=== PATIENT | female | born 1940 | race African-American/Black ===

== ENCOUNTER 2020-10-28 17:30 | Inpatient (IN) | payer MEDICARE ==
[2020-10-28] MEDS ORDERED: HumaLOG 300 UNITS/3 ML VIAL SC PRN (20:30)
[2020-10-28] MEDS ORDERED: Dextrose 50% Abboject 50 ML SYRINGE IVP PRN (20:30)
[2020-10-28] MEDS ORDERED: Dextrose 5% in Water 1,000 ML IV PRN (20:30)
[2020-10-28] MEDS ORDERED: Acetaminophen 500 MG TAB PO PRN (20:34)
[2020-10-28] MEDS: Atorvastatin Calcium 40 MG TAB PO SCH ×2 (20:55→21:44)
[2020-10-29] MEDS: HumaLOG 300 UNITS/3 ML VIAL SC PRN ×2 (06:11→12:26)
[2020-10-29] MEDS: Calcium Carbonate 600 MG + Vit D TAB PO SCH (08:05)
[2020-10-29] MEDS: Cholecalciferol 1,000 UNITS (25 MCG) TAB PO SCH (08:05)
[2020-10-29] MEDS: Losartan Potassium 50 MG TAB PO SCH (08:06)
[2020-10-29] MEDS: Folic Acid 1 MG TAB PO SCH (08:06)
[2020-10-29] MEDS: Aspirin 81 mg Enteric Coated Tablet PO SCH (08:06)
[2020-10-29] MEDS: Amlodipine 5 MG TAB PO SCH (08:06)
[2020-10-29] MEDS: metFORMIN 500 MG TAB PO SCH ×2 (08:07→17:19)
[2020-10-29] MEDS ORDERED: Ondansetron ODT 4 MG TAB PO PRN (09:39)
[2020-10-29] MEDS ORDERED: Acetaminophen 325 MG TAB PO PRN (09:39)
--- NOTE | 2020-10-29 10:06 | HP ---
HISTORY OF PRESENT ILLNESS: The patient is an 80-year-old pleasantly demented female, who [place] [facility] [facility] for COVID pneumonia. The patient was originally admitted for COVID positive state with pneumonia, first diagnosed on October 24. The patient also had metabolic acidosis secondary to dehydration and diarrhea, which has resolved. She recovered well from her COVID state, but remained in precautions and was still requiring PT/OT Services. The [place] [facility] and treatment. REVIEW OF SYSTEMS: Unable to obtain due to dementia. HPI and history were obtained through document review from previous hospital stays. PAST MEDICAL HISTORY: Dementia, hyperlipidemia, hypertension, and blindness. PAST SURGICAL HISTORY: Eye surgery. FAMILY HISTORY: Noncontributory. SOCIAL HISTORY: Lives at home with her niece and nephew. No history of tobacco abuse. She did chew tobacco, but quit five years ago. No history of alcohol abuse or drug use. HOME MEDICATIONS: 1. Vitamin D3. 2. Calcium. 3. Atorvastatin 40 mg at bedtime. 4. Metformin 1000 p.o. b.i.d. with meals. 5. Losartan 100 mg p.o. daily. 6. Aspirin 81 mg p.o. daily. 7. Norvasc 10 mg p.o. daily. 8. Quetiapine 150 p.o. at bedtime. OBJECTIVE: VITAL SIGNS: Temperature 98.4, pulse 84, respirations 19, O2 saturations 95% on room air, and blood pressure 117/59. GENERAL: Well-appearing, pleasantly demented 80-year-old female, lying in bed, in no acute distress. HEENT: EOMI. PERRLA. Normocephalic and atraumatic. Legally blind with cloudy corneas. NECK: No thyromegaly. No JVD. HEART: Regular rate and rhythm. No murmurs, gallops, or rubs. LUNGS: Clear to auscultation bilaterally. No wheezes or rhonchi. ABDOMEN: Soft and nontender to palpation. Bowel sounds positive in all four quadrants. NEUROLOGIC: Alert and oriented to self only. No focal deficit. LABORATORY DATA: Pending. ASSESSMENT: 1. Deconditioning secondary to COVID pneumonia. 2. Hypertension. 3. Hyperlipidemia. 4. Dementia. PLAN: 1. Continue COVID precautions for now. She will need to be under precautions until November 03. The patient is doing well and asymptomatic at this time. We are using full PPD precautions for her room as well. 2. Continue home antihypertensives. 3. PT/OT consult. 4. Continue diet. She will need help with feeding. 5. Dementia precautions. 6. Fall precautions. 7. Follow up with lab work. 8. DVT prophylaxis with SCDs due to fall risk. Job ID: [id number]
[2020-10-29] MEDS: Atorvastatin Calcium 40 MG TAB PO SCH (20:53)
[2020-10-30 05:19] LABS: ALT (SGPT) 12 U/L (8-55); AST (SGOT) 24 U/L (5-34); Albumin 2.8 g/dL (3.4-4.8); Alkaline Phosphatase 70 U/L (40-110); Anion Gap 15 mmol/L (10-20); BUN (Urea Nitrogen) 23 mg/dL (9.8-20.1); Bilirubin, Total 0.3 mg/dL (0.2-1.2); Calc. Creatinine Clearance 32 mL/min (70-130); Calcium 8.5 mg/dL (7.8-10.44); Carbon Dioxide 26 mmol/L (23-31); Chloride 99 mmol/L (98-107); Globulin 3.4 g/dL (2.4-3.5); Glucose 224 mg/dL (83-110); Potassium 3.9 mmol/L (3.5-5.1); Protein, Total 6.2 g/dL (6.0-8.3); Sodium 136 mmol/L (136-145)
[2020-10-30 05:24] LABS: Red Blood Cell (RBC) Count 3.79 mill/uL (4.20-5.40); White Blood Cell (WBC) Count 3.2 thou/uL (4.8-10.8)
[2020-10-30 05:25] LABS: #Eosinphils 0.1 thou/uL (0.0-0.7); #Lymphocytes 0.8 thou/uL (1.20-3.40); #Monocytes 0.4 thou/uL (0.11-0.59); %Basophils 0.5 % (0.0-1.0); %Eosinophils 1.8 % (0.0-10.0); %Lymphocytes 24.2 % (21.0-51.0); %Monocytes 10.9 % (0.0-10.0); %Neutrophils 62.5 % (42.0-75.0); Hemoglobin 10.7 g/dL (12.0-16.0); Manual Diff?? NO; Mean Corpuscular HGB CONC 31.2 g/dL (32.0-36.0); Mean Corpuscular Hemoglobin 28.3 pg (27.0-31.0); Mean Corpuscular Volume 90.6 fL (78.0-98.0); Mean Platelet Volume 8.4 fL (7.4-10.4); Platelet Count 302 thou/uL (130-400); RBC Distribution Width 12.7 % (11.5-14.5)
[2020-10-30 05:26] LABS: Anisocytosis SLIGHT = 6-15 cells (100X) (0-5/hpf); Hypochromia MODERATE=16-30 cells (100X) (0-5/hpf); Platelet Morphology Comment Appears Adequate
[2020-10-30] MEDS: HumaLOG 300 UNITS/3 ML VIAL SC PRN ×2 (05:51→11:56)
[2020-10-30] MEDS: Calcium Carbonate 600 MG + Vit D TAB PO SCH (08:04)
[2020-10-30] MEDS: Aspirin 81 mg Enteric Coated Tablet PO SCH (08:05)
[2020-10-30] MEDS: metFORMIN 500 MG TAB PO SCH ×2 (08:11→17:15)
[2020-10-30] MEDS: Cholecalciferol 1,000 UNITS (25 MCG) TAB PO SCH (08:11)
[2020-10-30] MEDS: Amlodipine 5 MG TAB PO SCH (08:11)
[2020-10-30] MEDS: Folic Acid 1 MG TAB PO SCH (08:12)
[2020-10-30] MEDS: Losartan Potassium 50 MG TAB PO SCH (08:12)
[2020-10-30] MEDS: Atorvastatin Calcium 40 MG TAB PO SCH (21:20)
[2020-10-31] MEDS: HumaLOG 300 UNITS/3 ML VIAL SC PRN ×3 (06:01→17:40)
[2020-10-31] MEDS: Calcium Carbonate 600 MG + Vit D TAB PO SCH (09:33)
[2020-10-31] MEDS: Amlodipine 5 MG TAB PO SCH (09:33)
[2020-10-31] MEDS: Cholecalciferol 1,000 UNITS (25 MCG) TAB PO SCH (09:33)
[2020-10-31] MEDS: metFORMIN 500 MG TAB PO SCH ×2 (09:35→17:39)
[2020-10-31] MEDS: Aspirin 81 mg Enteric Coated Tablet PO SCH (09:35)
[2020-10-31] MEDS: Folic Acid 1 MG TAB PO SCH (09:36)
[2020-10-31] MEDS: Losartan Potassium 50 MG TAB PO SCH (09:39)
--- NOTE | 2020-10-31 12:03 | PRG ---
DATE OF SERVICE: 10/31/2020 SUBJECTIVE: Ms. Kim is doing the same. Denies any complaints. Resting comfortably. She is still on respiratory droplet precautions due to recent COVID. This is to be end on November 03. OBJECTIVE: VITAL SIGNS: She is afebrile. Heart rate 91, respirations 18, oxygen saturation 96% on room air, blood pressure was 119/78 after her blood pressure medicines and 152/70 before her blood pressure medications. CARDIOVASCULAR SYSTEM: S1 and S2 plus. RESPIRATORY SYSTEM: Normal vesicular breath sounds. ABDOMEN: Soft, nontender. Bowel sounds heard in all quadrants. EXTREMITIES: Without cyanosis, clubbing. CENTRAL NERVOUS SYSTEM: Generalized weakness, otherwise nonfocal. IMPRESSION: 1. Recent COVID-19 infection. 2. Diabetes mellitus type 2. 3. Hypertension. 4. Dyslipidemia. 5. Dementia. 6. Deconditioning. PLAN: 1. Continue current medications. 2. 1800 calorie heart healthy ADA diet. 3. Accu-Cheks with sliding scale coverage. 4. Monitor blood pressure and adjust medications as needed. 5. Respiratory droplet precautions and monitor respiratory status. 6. DVT prophylaxis. 7. Decubitus precautions. 8. Stress ulcer prophylaxis. 9. Therapy. 10. Routine laboratory values. 11. Dr. Kofi amaya [facility]. Job ID: [id number]
[2020-10-31] MEDS ORDERED: Polyethylene Glycol 3350 17 GM Packet PO PRN (12:36)
[2020-10-31] MEDS ORDERED: Milk Of Magnesia 30 ML UDCUP PO PRN (12:36)
[2020-10-31] MEDS ORDERED: Fluconazole 100 MG TAB PO SCH (19:00)
[2020-10-31] MEDS: Atorvastatin Calcium 40 MG TAB PO SCH (20:42)
[2020-11-01] MEDS: HumaLOG 300 UNITS/3 ML VIAL SC PRN ×3 (04:51→17:35)
[2020-11-01] MEDS: Polyethylene Glycol 3350 17 GM Packet PO SCH (08:48)
[2020-11-01] MEDS: Cholecalciferol 1,000 UNITS (25 MCG) TAB PO SCH (08:49)
[2020-11-01] MEDS: Folic Acid 1 MG TAB PO SCH (08:49)
[2020-11-01] MEDS: Calcium Carbonate 600 MG + Vit D TAB PO SCH (08:49)
[2020-11-01] MEDS: Losartan Potassium 50 MG TAB PO SCH (08:49)
[2020-11-01] MEDS: Aspirin 81 mg Enteric Coated Tablet PO SCH (08:49)
[2020-11-01] MEDS: metFORMIN 500 MG TAB PO SCH ×2 (08:49→17:35)
[2020-11-01] MEDS: Amlodipine 5 MG TAB PO SCH (08:51)
[2020-11-01] MEDS ORDERED: Ondansetron ODT 4 MG TAB SL PRN (10:00)
[2020-11-01] MEDS: Atorvastatin Calcium 40 MG TAB PO SCH (20:50)
[2020-11-02] MEDS: HumaLOG 300 UNITS/3 ML VIAL SC PRN ×2 (06:02→11:52)
[2020-11-02] MEDS: Cholecalciferol 1,000 UNITS (25 MCG) TAB PO SCH (08:03)
[2020-11-02] MEDS: Losartan Potassium 50 MG TAB PO SCH (08:03)
[2020-11-02] MEDS: Polyethylene Glycol 3350 17 GM Packet PO SCH (08:03)
[2020-11-02] MEDS: metFORMIN 500 MG TAB PO SCH ×2 (08:03→17:53)
[2020-11-02] MEDS: Calcium Carbonate 600 MG + Vit D TAB PO SCH (08:03)
[2020-11-02] MEDS: Aspirin 81 mg Enteric Coated Tablet PO SCH (08:04)
[2020-11-02] MEDS: Folic Acid 1 MG TAB PO SCH (08:04)
[2020-11-02] MEDS: Amlodipine 5 MG TAB PO SCH (08:04)
[2020-11-02] MEDS: HumaLOG 300 UNITS/3 ML VIAL SC SCH ×2 (17:53→22:05)
[2020-11-02] MEDS: Atorvastatin Calcium 40 MG TAB PO SCH (22:04)
[2020-11-03] MEDS: HumaLOG 300 UNITS/3 ML VIAL SC SCH ×4 (07:45→21:11)
[2020-11-03] MEDS: Polyethylene Glycol 3350 17 GM Packet PO SCH (08:32)
[2020-11-03] MEDS: Calcium Carbonate 600 MG + Vit D TAB PO SCH (08:33)
[2020-11-03] MEDS: Amlodipine 5 MG TAB PO SCH (08:33)
[2020-11-03] MEDS: Cholecalciferol 1,000 UNITS (25 MCG) TAB PO SCH (08:33)
[2020-11-03] MEDS: Folic Acid 1 MG TAB PO SCH (08:33)
[2020-11-03] MEDS: metFORMIN 500 MG TAB PO SCH ×2 (08:33→17:29)
[2020-11-03] MEDS: Losartan Potassium 50 MG TAB PO SCH (08:34)
[2020-11-03] MEDS: Aspirin 81 mg Enteric Coated Tablet PO SCH (08:41)
[2020-11-03] MEDS ORDERED: Insulin Glargine 5 UNITS in Pre-Filled Syringe 1 EACH SC SCH (11:16)
[2020-11-03] MEDS: Nystatin 500,000 UNITS/5 ML UDCUP SSW SCH ×3 (13:02→20:54)
--- NOTE | 2020-11-03 16:15 | PRG ---
DATE OF SERVICE: 11/01/2020 SUBJECTIVE: This is a pleasant 80-year-old female, here for continued PT and OT services. She is doing well today. No complaints. Resting in bed comfortably. She is still in droplet precautions because she was diagnosed with COVID at her previous stay. OBJECTIVE: VITAL SIGNS: Temperature 97.0, pulse 82, respirations 16, O2 saturations 96 on room air, and blood pressure 113/56. GENERAL: Well-appearing, pleasant female, lying in bed, in no acute distress. CARDIOVASCULAR: Regular rate and rhythm. No murmurs, gallops, or rubs. RESPIRATORY: Clear to auscultation bilaterally. No wheezes or rhonchi. ABDOMEN: Soft, nontender to palpation. Bowel sounds positive in all 4 quadrants. EXTREMITIES: No cyanosis or clubbing. LABORATORY DATA: Blood glucose 153 to 338. IMPRESSION: 1. Recent COVID infection. 2. Diabetes mellitus, type 2. 3. Hypertension. 4. Dyslipidemia. 5. Dementia. 6. Deconditioning. PLAN: 1. Continue current medications; however, we will need to review her insulin regimen due to high CBGs. 2. ADA diet. 3. Accu-Cheks with sliding scale coverage. 4. Monitor blood pressure. 5. Continue respiratory and droplet precautions per COVID protocol. 6. DVT prophylaxis. 7. Decubitus precautions. 8. Stress ulcer prophylaxis. 9. PT/OT services. Job ID: [id number] MTDD
--- NOTE | 2020-11-03 16:26 | PRG ---
DATE OF SERVICE: 11/02/2020 SUBJECTIVE: The patient is doing well. However, her blood sugars remain elevated. We will adjust with scheduled insulin rather than sliding scale as this is not providing adequate coverage. Overall doing very well and participating well in therapy. She remains on COVID precautions. OBJECTIVE: VITAL SIGNS: Temperature 97.1, pulse 84, respirations 18 to 20, O2 saturations 99% on room air, blood pressure 113/52. LABORATORY DATA: Blood glucose ranging from 209 to 292. ASSESSMENT: 1. Status post COVID infection, recovering well. 2. Diabetes type 2. 3. Hypertension. 4. Hyperlipidemia. 5. Dementia. 6. Weakness and deconditioning. PLAN: 1. Start insulin lispro 5 units q.a.c. and discontinue sliding scale coverage. Continue q.a.c. blood glucose. We will consider long-acting insulin based on the patient's new blood sugars. 2. Continue PT and OT services. 3. DVT and stress ulcer prophylaxis. 4. Continue current BP medications. BP well controlled. 5. Discharge planning: conservation worker has discussed discharge planning with the patient's family and they would like for her to go to [facility]. We are working on placement for this. However, she will need to be out of COVID precautions before she can be transferred to a nursing facility. Her precautions will be over at midnight on 11/02, essentially 1159 hours on November 02. Continue to monitor the patient with blood pressure and vitals. Job ID: [id number]
--- NOTE | 2020-11-03 16:27 | PRG ---
DATE OF SERVICE: 11/03/2020 SUBJECTIVE: The patient is doing well today. She is out of her COVID precautions. She is doing well and she is actually up and walking around with Physical Therapy today. The patient's blood sugars have been improving; however, they ranged from 66 to 79. Therefore, we will initiate long-acting insulin. She will also need to have a snack before bed as her blood sugar was low overnight. We will continue to monitor this. OBJECTIVE: VITAL SIGNS: Today; temperature 97.6, pulse 81 to 84, respirations 18, O2 sats 98% on room air, and blood pressure ranged 96/51 to 119/57. The patient does appear to be orthostatic with a pulse of 96 to 105. We will need to encourage fluids for this. GENERAL: A well-appearing 80-year-old female, lying in bed, in no acute distress. Later in the day, I did see her walking around as well and she was doing very well, walking with PT. LUNGS: Respirations clear to auscultation bilaterally. No wheezes or rhonchi. HEART: Regular rate and rhythm. No murmurs, gallops, rubs. GI: Soft, nontender to palpation. Bowel sounds positive in all 4 quadrants. EXTREMITIES: No cyanosis, no clubbing. ASSESSMENT: 1. Resolving COVID infection. The patient is now out of precautions due to being asymptomatic. 2. Hypertension. 3. Hyperlipidemia. 4. Diabetes, type 2. 5. Deconditioning. 6. Weakness. PLAN: 1. Start glargine 5 units in the morning. We will continue to monitor her blood sugar. She will need a snack before bedtime. We will continue 5 units of lispro as well and this is more in line with her home regimen per family. 2. Continue antihypertensives. Monitor blood pressure. 3. PT/OT Services. 4. DVT and stress ulcer prophylaxis. 5. Decubitus precautions. 6. Fall precautions. 7. Aspiration precautions. 8. Continue to monitor the patient. Overall, she seems to be doing very well. 9. Discharge planning: The patient's family would like for her to go to a nursing facility now that the patient is out of COVID precautions, we can start looking for placement for her. We will follow up with Case Management for this. Job ID: [id number]
[2020-11-03] MEDS: Atorvastatin Calcium 40 MG TAB PO SCH (20:50)
[2020-11-04] MEDS: HumaLOG 300 UNITS/3 ML VIAL SC SCH ×4 (08:11→20:21)
[2020-11-04] MEDS: Aspirin 81 mg Enteric Coated Tablet PO SCH (08:11)
[2020-11-04] MEDS: Cholecalciferol 1,000 UNITS (25 MCG) TAB PO SCH (08:11)
[2020-11-04] MEDS: Calcium Carbonate 600 MG + Vit D TAB PO SCH (08:11)
[2020-11-04] MEDS: Amlodipine 5 MG TAB PO SCH (08:11)
[2020-11-04] MEDS: Folic Acid 1 MG TAB PO SCH (08:11)
[2020-11-04] MEDS: Nystatin 500,000 UNITS/5 ML UDCUP SSW SCH ×4 (08:12→20:21)
[2020-11-04] MEDS: Losartan Potassium 50 MG TAB PO SCH (08:12)
[2020-11-04] MEDS: metFORMIN 500 MG TAB PO SCH ×2 (08:12→17:39)
[2020-11-04] MEDS: Polyethylene Glycol 3350 17 GM Packet PO SCH (08:12)
[2020-11-04] MEDS: Lantus 1000 UNITS/10 ML VIAL SC SCH (08:13)
--- NOTE | 2020-11-04 19:19 | PRG ---
DATE OF SERVICE: 11/04/2020 SUBJECTIVE: The patient lying in bed, sleeping, resting well with no complaints, has been cooperating fairly well with Therapy. Appears stabilized, may be ready for home soon. She has had resolving COVID infection and is off precautions with no evidence of symptoms. OBJECTIVE: VITAL SIGNS: Blood pressure is 112/54, pulse 89, O2 saturations 95%. LUNGS: Clear. CARDIAC: Regular rhythm. ABDOMEN: Soft and nontender. LABORATORY DATA: Accu-Cheks remained at 84 to 165. ASSESSMENT: 1. Resolving COVID. 2. Improving deconditioning. 3. Stable hypertension. 4. Stable type 2 diabetes. PLAN: 1. Continue PT/OT. 2. Continue Lantus and monitor Accu-Cheks. 3. Discharge planning with family. Job ID: [id number]
[2020-11-04] MEDS: Atorvastatin Calcium 40 MG TAB PO SCH (20:21)
[2020-11-05] MEDS: Calcium Carbonate 600 MG + Vit D TAB PO SCH ×2 (08:18→09:48)
[2020-11-05] MEDS: Amlodipine 5 MG TAB PO SCH ×2 (08:18→09:47)
[2020-11-05] MEDS: Cholecalciferol 1,000 UNITS (25 MCG) TAB PO SCH ×2 (08:19→09:48)
[2020-11-05] MEDS: Nystatin 500,000 UNITS/5 ML UDCUP SSW SCH ×5 (08:19→21:08)
[2020-11-05] MEDS: metFORMIN 500 MG TAB PO SCH ×3 (08:19→17:50)
[2020-11-05] MEDS: Polyethylene Glycol 3350 17 GM Packet PO SCH ×2 (08:19→09:48)
[2020-11-05] MEDS: Losartan Potassium 50 MG TAB PO SCH ×2 (08:19→09:48)
[2020-11-05] MEDS: Folic Acid 1 MG TAB PO SCH ×2 (08:19→09:48)
[2020-11-05] MEDS: Aspirin 81 mg Enteric Coated Tablet PO SCH ×2 (08:19→09:47)
[2020-11-05] MEDS: Lantus 1000 UNITS/10 ML VIAL SC SCH (08:20)
[2020-11-05] MEDS: HumaLOG 300 UNITS/3 ML VIAL SC SCH ×3 (08:20→17:52)
--- NOTE | 2020-11-05 16:25 | PRG ---
DATE OF SERVICE: 11/05/2020 SUBJECTIVE: Ms. Kim is doing well, resting in bed. Denies any concerns. No family at bedside. OBJECTIVE: VITAL SIGNS: She is afebrile, heart rate 80, respirations 18, oxygen saturation 99% on room air, and blood pressure 128/68. CARDIOVASCULAR SYSTEM: S1 and S2 plus. RESPIRATORY SYSTEM: Normal vesicular breath sounds. ABDOMEN: Soft and nontender. Bowel sounds heard in all quadrants. EXTREMITIES: Without cyanosis or clubbing. CENTRAL NERVOUS SYSTEM: Generalized weakness, otherwise nonfocal. IMPRESSION: 1. COVID-19 infection recently. 2. Diabetes mellitus type 2. 3. Hypertension. 4. Dyslipidemia. 5. Dementia. 6. Deconditioning. PLAN: 1. Continue current medications. 2. Monitor respiratory status. The patient is currently on room air. 3. Nutritional support. 4. Physical therapy. 5. Routine laboratory values. 6. DVT prophylaxis. 7. Decubitus precautions. 8. Stress ulcer prophylaxis. Job ID: [id number]
[2020-11-05] MEDS: Atorvastatin Calcium 40 MG TAB PO SCH (21:07)
[2020-11-06] MEDS: metFORMIN 500 MG TAB PO SCH ×2 (08:55→17:41)
[2020-11-06] MEDS: Calcium Carbonate 600 MG + Vit D TAB PO SCH (08:55)
[2020-11-06] MEDS: Polyethylene Glycol 3350 17 GM Packet PO SCH (08:55)
[2020-11-06] MEDS: Nystatin 500,000 UNITS/5 ML UDCUP SSW SCH ×4 (08:55→21:01)
[2020-11-06] MEDS: Aspirin 81 mg Enteric Coated Tablet PO SCH (08:55)
[2020-11-06] MEDS: Folic Acid 1 MG TAB PO SCH (08:55)
[2020-11-06] MEDS: Losartan Potassium 50 MG TAB PO SCH (08:55)
[2020-11-06] MEDS: Cholecalciferol 1,000 UNITS (25 MCG) TAB PO SCH (08:55)
[2020-11-06] MEDS: Amlodipine 5 MG TAB PO SCH (08:56)
[2020-11-06] MEDS: HumaLOG 300 UNITS/3 ML VIAL SC SCH ×3 (08:56→17:41)
[2020-11-06] MEDS: Lantus 1000 UNITS/10 ML VIAL SC SCH (08:57)
[2020-11-06] MEDS: Milk Of Magnesia 30 ML UDCUP PO PRN (14:39)
--- NOTE | 2020-11-06 15:45 | PRG ---
DATE OF SERVICE: 11/06/2020 SUBJECTIVE: Ms. Kim is doing the same. Denies any concerns or questions. No family at bedside. Discussed with nursing. OBJECTIVE: VITAL SIGNS: She is afebrile. Heart rate 76, respirations 18, oxygen saturation 97% on room air, blood pressure 146/67. CARDIOVASCULAR: S1 and S2 plus. RESPIRATORY: Normal vesicular breath sounds. ABDOMEN: Soft, nontender. Bowel sounds heard in all quadrants. EXTREMITIES: Without cyanosis or clubbing. CENTRAL NERVOUS SYSTEM: Generalized weakness. IMPRESSION: 1. Recent COVID-19 infection. 2. Diabetes mellitus type 2. 3. Hypertension. 4. Dyslipidemia. 5. Deconditioning. 6. Dementia. PLAN: 1. Continue current medications. 2. 1800 calorie heart healthy ADA diet. 3. Accu-Cheks with sliding scale coverage. 4. Physical therapy. 5. Monitor respiratory status. 6. Routine laboratory values. 7. Dr. Kofi mejia. Job ID: [id number]
[2020-11-06] MEDS: Atorvastatin Calcium 40 MG TAB PO SCH (21:00)
[2020-11-07] MEDS: Losartan Potassium 50 MG TAB PO SCH (08:25)
[2020-11-07] MEDS: Aspirin 81 mg Enteric Coated Tablet PO SCH (08:26)
[2020-11-07] MEDS: Nystatin 500,000 UNITS/5 ML UDCUP SSW SCH ×4 (08:26→21:10)
[2020-11-07] MEDS: Amlodipine 5 MG TAB PO SCH (08:26)
[2020-11-07] MEDS: Folic Acid 1 MG TAB PO SCH (08:27)
[2020-11-07] MEDS: Calcium Carbonate 600 MG + Vit D TAB PO SCH (08:27)
[2020-11-07] MEDS: Polyethylene Glycol 3350 17 GM Packet PO SCH (08:27)
[2020-11-07] MEDS: Cholecalciferol 1,000 UNITS (25 MCG) TAB PO SCH (08:27)
[2020-11-07] MEDS: metFORMIN 500 MG TAB PO SCH ×2 (08:27→17:35)
[2020-11-07] MEDS: HumaLOG 300 UNITS/3 ML VIAL SC SCH ×3 (08:28→17:36)
[2020-11-07] MEDS: Lantus 1000 UNITS/10 ML VIAL SC SCH (08:28)
[2020-11-07] MEDS: Milk Of Magnesia 30 ML UDCUP PO PRN (08:29)
[2020-11-07] MEDS: Atorvastatin Calcium 40 MG TAB PO SCH (21:09)
[2020-11-08] MEDS: HumaLOG 300 UNITS/3 ML VIAL SC SCH ×3 (08:06→17:51)
[2020-11-08] MEDS: Lantus 1000 UNITS/10 ML VIAL SC SCH (08:06)
[2020-11-08] MEDS: Polyethylene Glycol 3350 17 GM Packet PO SCH (08:09)
[2020-11-08] MEDS: metFORMIN 500 MG TAB PO SCH ×2 (08:09→17:52)
[2020-11-08] MEDS: Aspirin 81 mg Enteric Coated Tablet PO SCH (08:09)
[2020-11-08] MEDS: Nystatin 500,000 UNITS/5 ML UDCUP SSW SCH ×4 (08:09→21:29)
[2020-11-08] MEDS: Amlodipine 5 MG TAB PO SCH (08:09)
[2020-11-08] MEDS: Calcium Carbonate 600 MG + Vit D TAB PO SCH (08:10)
[2020-11-08] MEDS: Folic Acid 1 MG TAB PO SCH (08:11)
[2020-11-08] MEDS: Losartan Potassium 50 MG TAB PO SCH (08:11)
[2020-11-08] MEDS: Cholecalciferol 1,000 UNITS (25 MCG) TAB PO SCH (08:11)
--- NOTE | 2020-11-08 13:10 | PRG ---
DATE OF SERVICE: 11/08/2020 SUBJECTIVE: Ms. Kim is resting in bed and denies any concerns. She is happy with her progress. No family at bedside. Discussed with nursing. OBJECTIVE: VITAL SIGNS: She is afebrile, heart rate 97, respirations 19, oxygen saturation 100% on room air, and blood pressure 136/66. CARDIOVASCULAR SYSTEM: S1 and S2 plus. RESPIRATORY SYSTEM: Normal vesicular breath sounds. ABDOMEN: Soft and nontender. Bowel sounds heard in all quadrants. EXTREMITIES: Without cyanosis or clubbing. CENTRAL NERVOUS SYSTEM: Generalized weakness and cognitive deficits, otherwise nonfocal. IMPRESSION: 1. Recent COVID-19 infection, now completely asymptomatic, resolved. 2. Diabetes mellitus, type 2. 3. Hypertension. 4. Dyslipidemia. 5. Deconditioning. 6. Dementia. PLAN: 1. Continue current medications. 2. 1800-calorie, heart healthy, ADA diet. Her blood sugars are well controlled at 112, 44, 135, 109, and 165. 3. Physical therapy. 4. DVT prophylaxis. 5. Decubitus precautions. 6. Stress ulcer prophylaxis. 7. Discharge planning. Job ID: [id number]
[2020-11-08] MEDS: Atorvastatin Calcium 40 MG TAB PO SCH (21:30)
[2020-11-09] MEDS: Aspirin 81 mg Enteric Coated Tablet PO SCH (07:55)
[2020-11-09] MEDS: Polyethylene Glycol 3350 17 GM Packet PO SCH (07:55)
[2020-11-09] MEDS: Losartan Potassium 50 MG TAB PO SCH (07:56)
[2020-11-09] MEDS: Amlodipine 5 MG TAB PO SCH (07:56)
[2020-11-09] MEDS: metFORMIN 500 MG TAB PO SCH ×2 (07:57→17:50)
[2020-11-09] MEDS: Folic Acid 1 MG TAB PO SCH (07:58)
[2020-11-09] MEDS: Lantus 1000 UNITS/10 ML VIAL SC SCH (07:58)
[2020-11-09] MEDS: Cholecalciferol 1,000 UNITS (25 MCG) TAB PO SCH (07:58)
[2020-11-09] MEDS: Calcium Carbonate 600 MG + Vit D TAB PO SCH (08:01)
[2020-11-09] MEDS: Nystatin 500,000 UNITS/5 ML UDCUP SSW SCH ×4 (08:05→20:39)
[2020-11-09] MEDS: HumaLOG 300 UNITS/3 ML VIAL SC SCH ×3 (08:06→17:50)
--- NOTE | 2020-11-09 12:45 | PRG ---
DATE OF SERVICE: 11/09/2020 SUBJECTIVE: Ms. Kim is doing the same. Denies any complaints. Waiting on lunch. OBJECTIVE: VITAL SIGNS: She is afebrile. Heart rate 81, respirations 18, oxygen saturation 98% on room air, blood pressure 142/71. CARDIOVASCULAR: S1, S2 plus. RESPIRATORY: Normal vesicular breath sounds. ABDOMEN: Soft, nontender. Bowel sounds heard in all quadrants. EXTREMITIES: Without cyanosis or clubbing. CENTRAL NERVOUS SYSTEM: Generalized weakness, mild cognitive deficits. Otherwise, nonfocal. IMPRESSION: 1. Recent COVID-19 infection, recovered completely. 2. Diabetes mellitus, type 2. 3. Hypertension. 4. Dyslipidemia. 5. Deconditioning. 6. Dementia. PLAN: 1. Continue current medications. 2. 1800-calorie heart healthy ADA diet. 3. Accu-Cheks with sliding scale coverage. 4. DVT prophylaxis with PlexiPulses. 5. Decubitus precautions. 6. Physical therapy. 7. Routine laboratory values. 8. Dr. Kirby on-call from 5 p.m. [facility]. Job ID: [id number]
[2020-11-09] MEDS: Atorvastatin Calcium 40 MG TAB PO SCH (20:39)
[2020-11-10] MEDS: Nystatin 500,000 UNITS/5 ML UDCUP SSW SCH ×4 (08:17→20:57)
[2020-11-10] MEDS: Polyethylene Glycol 3350 17 GM Packet PO SCH (08:17)
[2020-11-10] MEDS: Cholecalciferol 1,000 UNITS (25 MCG) TAB PO SCH (08:18)
[2020-11-10] MEDS: Calcium Carbonate 600 MG + Vit D TAB PO SCH (08:18)
[2020-11-10] MEDS: metFORMIN 500 MG TAB PO SCH ×2 (08:18→17:43)
[2020-11-10] MEDS: Losartan Potassium 50 MG TAB PO SCH (08:18)
[2020-11-10] MEDS: Aspirin 81 mg Enteric Coated Tablet PO SCH (08:19)
[2020-11-10] MEDS: Amlodipine 5 MG TAB PO SCH (08:19)
[2020-11-10] MEDS: Folic Acid 1 MG TAB PO SCH (08:19)
[2020-11-10] MEDS: Lantus 1000 UNITS/10 ML VIAL SC SCH (08:27)
[2020-11-10] MEDS: HumaLOG 300 UNITS/3 ML VIAL SC SCH (08:27)
[2020-11-10] MEDS ORDERED: HumaLOG 300 UNITS/3 ML VIAL SC PRN (10:15)
--- NOTE | 2020-11-10 11:08 | PRG ---
DATE OF SERVICE: 11/10/2020 SUBJECTIVE: The patient is doing well; however, we had to hold her insulin, scheduled short-acting insulin last night because her sugars were in the 70s. She was asymptomatic, doing well. We are giving her a snack at night now. We will need to switch her scheduled short-acting to sliding scale insulin. REVIEW OF SYSTEMS: Denies any fever, chills, cough, congestion, palpitations, chest pain, nausea, vomiting, or diarrhea. PHYSICAL EXAMINATION: VITAL SIGNS: Today, temperature 98.1, pulse 75, respirations 16 to 18, O2 saturations 95% on room air, blood pressure ranged 121/66 to 182/81. GENERAL: Well-appearing, well-developed 80-year-old female, lying in bed, no acute distress. CARDIOVASCULAR: Regular rate and rhythm. No murmurs, gallops, or rubs. RESPIRATORY: Clear to auscultation bilaterally. No wheezes or rhonchi. ABDOMEN: Soft, nontender to palpation. Bowel sounds positive in all 4 quadrants. EXTREMITIES: Without cyanosis or clubbing. CENTRAL NERVOUS SYSTEM: Generalized weakness, mild cognitive deficiency. LABORATORY DATA: CBG is ranging between 70 and 163. IMPRESSION: 1. Status post COVID-19 infection, recovered. 2. Diabetes mellitus type 2. 3. Hypertension. 4. Deconditioning. 5. Dementia. PLAN: 1. Switch scheduled short-acting insulin to insulin sliding scale. Continue with Lantus 5 units in the morning and metformin 1000 b.i.d. 2. ADA diet. 3. Accu-Cheks a.c. and at bedtime. 4. DVT prophylaxis with PlexiPulses. 5. Decubitus precautions. 6. Physical therapy and occupational therapy. 7. Routine laboratory values. Job ID: [id number] [facility]
[2020-11-10] MEDS: Atorvastatin Calcium 40 MG TAB PO SCH (20:57)
[2020-11-11 05:33] LABS: Anion Gap 15 mmol/L (10-20); BUN (Urea Nitrogen) 30 mg/dL (9.8-20.1); Calc. Creatinine Clearance 39 mL/min (70-130); Calcium 8.9 mg/dL (7.8-10.44); Carbon Dioxide 26 mmol/L (23-31); Chloride 103 mmol/L (98-107); Glucose 109 mg/dL (83-110); Potassium 4.3 mmol/L (3.5-5.1); Sodium 140 mmol/L (136-145)
[2020-11-11 05:36] LABS: #Basophils 0.1 thou/uL (0.0-0.2); #Eosinphils 0.1 thou/uL (0.0-0.7); #Lymphocytes 1.6 thou/uL (1.20-3.40); #Monocytes 0.4 thou/uL (0.11-0.59); #Neutrophils 1.9 thou/uL (1.40-6.50); %Basophils 1.6 % (0.0-1.0); %Eosinophils 1.4 % (0.0-10.0); %Lymphocytes 40.6 % (21.0-51.0); %Monocytes 8.9 % (0.0-10.0); %Neutrophils 47.5 % (42.0-75.0); Hemoglobin 11.2 g/dL (12.0-16.0); Mean Corpuscular HGB CONC 31.1 g/dL (32.0-36.0); Mean Corpuscular Hemoglobin 28.7 pg (27.0-31.0); Mean Corpuscular Volume 92.1 fL (78.0-98.0); Mean Platelet Volume 8.2 fL (7.4-10.4); Platelet Count 390 thou/uL (130-400); RBC Distribution Width 13.6 % (11.5-14.5); Red Blood Cell (RBC) Count 3.89 mill/uL (4.20-5.40)
[2020-11-11 05:39] LABS: Magnesium 2.5 mg/dL (1.6-2.6)
[2020-11-11] MEDS: metFORMIN 500 MG TAB PO SCH ×2 (08:54→17:47)
[2020-11-11] MEDS: Nystatin 500,000 UNITS/5 ML UDCUP SSW SCH ×4 (08:54→20:58)
[2020-11-11] MEDS: Polyethylene Glycol 3350 17 GM Packet PO SCH (08:54)
[2020-11-11] MEDS: Amlodipine 5 MG TAB PO SCH (08:55)
[2020-11-11] MEDS: Losartan Potassium 50 MG TAB PO SCH (08:55)
[2020-11-11] MEDS: Calcium Carbonate 600 MG + Vit D TAB PO SCH (08:56)
[2020-11-11] MEDS: Aspirin 81 mg Enteric Coated Tablet PO SCH (08:56)
[2020-11-11] MEDS: Folic Acid 1 MG TAB PO SCH (08:59)
[2020-11-11] MEDS: Cholecalciferol 1,000 UNITS (25 MCG) TAB PO SCH (09:00)
[2020-11-11] MEDS: Lantus 1000 UNITS/10 ML VIAL SC SCH (09:01)
[2020-11-11] MEDS: Atorvastatin Calcium 40 MG TAB PO SCH (20:59)
[2020-11-12] MEDS: Calcium Carbonate 600 MG + Vit D TAB PO SCH (08:40)
[2020-11-12] MEDS: Losartan Potassium 50 MG TAB PO SCH (08:40)
[2020-11-12] MEDS: Amlodipine 5 MG TAB PO SCH (08:40)
[2020-11-12] MEDS: Aspirin 81 mg Enteric Coated Tablet PO SCH (08:40)
[2020-11-12] MEDS: Nystatin 500,000 UNITS/5 ML UDCUP SSW SCH ×4 (08:40→20:32)
[2020-11-12] MEDS: Polyethylene Glycol 3350 17 GM Packet PO SCH (08:40)
[2020-11-12] MEDS: Cholecalciferol 1,000 UNITS (25 MCG) TAB PO SCH (08:40)
[2020-11-12] MEDS: metFORMIN 500 MG TAB PO SCH ×2 (08:41→17:50)
[2020-11-12] MEDS: Lantus 1000 UNITS/10 ML VIAL SC SCH (08:41)
[2020-11-12] MEDS: Folic Acid 1 MG TAB PO SCH (08:41)
[2020-11-12] MEDS: Atorvastatin Calcium 40 MG TAB PO SCH (20:32)
[2020-11-13 07:00] VITALS: BMI 23.2
[2020-11-13] MEDS: Lantus 1000 UNITS/10 ML VIAL SC SCH (08:41)
[2020-11-13] MEDS: Nystatin 500,000 UNITS/5 ML UDCUP SSW SCH ×4 (09:15→20:40)
[2020-11-13] MEDS: Polyethylene Glycol 3350 17 GM Packet PO SCH (09:15)
[2020-11-13] MEDS: Cholecalciferol 1,000 UNITS (25 MCG) TAB PO SCH (09:16)
[2020-11-13] MEDS: metFORMIN 500 MG TAB PO SCH ×2 (09:16→17:14)
[2020-11-13] MEDS: Aspirin 81 mg Enteric Coated Tablet PO SCH (09:16)
[2020-11-13] MEDS: Losartan Potassium 50 MG TAB PO SCH (09:16)
[2020-11-13] MEDS: Amlodipine 5 MG TAB PO SCH (09:17)
[2020-11-13] MEDS: Calcium Carbonate 600 MG + Vit D TAB PO SCH (09:17)
[2020-11-13] MEDS: Folic Acid 1 MG TAB PO SCH (09:18)
--- NOTE | 2020-11-13 10:12 | PRG ---
DATE OF SERVICE: 11/13/2020 SUBJECTIVE: The patient is doing well overall. Her sugars are doing much better, and she is continuing to work with Therapy; however, it seems that she might be getting to the end of her therapy regimen. REVIEW OF SYSTEMS: Denies any fever, chills, cough, congestion, chest pain, palpitations, nausea, vomiting, or diarrhea. OBJECTIVE: VITAL SIGNS: Today, temperature 97.9, pulse 78, respirations 16, O2 sats 94% to 96% on room air, blood pressure 129/63 to 147/69. GENERAL: Well-appearing, well-developed 80-year-old female, lying in bed, in no acute distress. CARDIOVASCULAR: Regular rate and rhythm. No murmurs, gallops, or rubs. RESPIRATORY: Clear to auscultation bilaterally. No wheezes, rhonchi. ABDOMEN: Soft. Nontender to palpation. Bowel sounds positive in all 4 quadrants. EXTREMITIES: No cyanosis or clubbing. CENTRAL NERVOUS SYSTEM: Generalized weakness with mild cognitive deficiency. LABORATORY DATA: POC glucose range 72 to 142. White count 4.0, hemoglobin 11.2, hematocrit 35.8, and platelets 39. Sodium 140, potassium 4.3, chloride 103, bicarb 26, BUN 30, creatinine 0.94, GFR 69, calcium 8.9, and magnesium 2.5. IMPRESSION: 1. Weakness, status post COVID-19 infection, improving. 2. Diabetes type 2. 3. Hypertension. 4. Deconditioning. 5. Dementia. PLAN: 1. Continue current insulin regimen with oral metformin 1000 b.i.d. 2. ADA diet. 3. Accu-Cheks before meals and at bedtime. 4. DVT prophylaxis with intermittent compression devices. 5. Decubitus precautions. 6. PT/OT. 7. Routine laboratory values. 8. Discharge planning: Looking to discharge the patient to [facility] on November 14, if accepted. Job ID: [id number]
[2020-11-13] MEDS: Atorvastatin Calcium 40 MG TAB PO SCH (20:42)
[2020-11-14] MEDS: Lantus 1000 UNITS/10 ML VIAL SC SCH (07:59)
[2020-11-14] MEDS: Nystatin 500,000 UNITS/5 ML UDCUP SSW SCH ×3 (08:05→18:07)
[2020-11-14] MEDS: Cholecalciferol 1,000 UNITS (25 MCG) TAB PO SCH (08:05)
[2020-11-14] MEDS: Amlodipine 5 MG TAB PO SCH (08:05)
[2020-11-14] MEDS: Losartan Potassium 50 MG TAB PO SCH (08:08)
[2020-11-14] MEDS: metFORMIN 500 MG TAB PO SCH ×2 (08:09→20:29)
[2020-11-14] MEDS: Aspirin 81 mg Enteric Coated Tablet PO SCH (08:09)
[2020-11-14] MEDS: Polyethylene Glycol 3350 17 GM Packet PO SCH (08:10)
[2020-11-14] MEDS: Calcium Carbonate 600 MG + Vit D TAB PO SCH (08:14)
[2020-11-14 09:12] VITALS: TEMP 98.7
[2020-11-14] MEDS: Folic Acid 1 MG TAB PO SCH (12:54)
[2020-11-14 13:29] VITALS: BP 142/78
[2020-11-14] MEDS ORDERED: metFORMIN 500 MG TAB ONE (20:25)
== END 2020-11-14 20:35 | DRG 177 ==
LOC: NAV ACUTE 17:30
PROVIDERS: ADMIT Family Medicine; ATTEND Family Medicine
DX: U07.1 COVID-19 (principal); J12.89 Other viral pneumonia; I10 Essential (primary) hypertension; F03.90 Unspecified dementia, unspecified severity, without behavioral disturbance, psychotic disturbance, mood disturbance, and anxiety; E78.5 Hyperlipidemia, unspecified; Z79.82 Long term (current) use of aspirin; Z79.899 Other long term (current) drug therapy; Z79.84 Long term (current) use of oral hypoglycemic drugs
CPT/HCPCS: 36416; 80048; 80053; 83735; 85025; J1610; J1815